=== PATIENT | female | born 1970 | race Caucasian/White ===

== ENCOUNTER 2023-08-10 18:21 | Emergency (ER) | payer MEDICARE ==
--- NOTE | 2023-08-10 19:49 | ED Physician Documentation ---
History of Present Illness - Stated complaint Stated Complaint: JAW PX - Chief complaint Chief Complaint: Heent - History obtained from History obtained from: Patient - Additonal information Additional information: 53yF with pmh seizure disorder, depression, migraines, p/w BL lower jaw pain, pulling sensation on face, headache, sinus fullness and sore throat X 2 days. patient also states her ear popped. denies fever, confusion, fnd. PD PAST MEDICAL HISTORY - Past Medical History Past Medical History: Yes Neuro: Seizure disorder GI: Diverticulitis Psych: Depression - Past Surgical History Past Surgical History: Yes - Present Medications Home Medications: Ambulatory Orders Medication Instructions Recorded Confirmed Ketorolac [Toradol] 10 mg PO Q6H PRN #20 tablet 08/10/23 - Allergies Allergies/Adverse Reactions: Allergies Allergy/AdvReac Type Severity Reaction Status Date / Time lamotrigine [From Lamictal] Allergy Hives Verified 08/10/23 18:29 morphine Allergy Hives Verified 08/10/23 18:29 - Social History Does the pt smoke?: No Smoking Status: Never smoker PD ED PE NORMAL - Vitals Vital signs reviewed: Yes - General General: Alert and oriented X 3, No acute distress, Well developed/nourished - HEENT HEENT: Atraumatic, PERRL, EOMI, Moist mucous membranes, Pharynx benign - Neck Neck: Supple, no meningeal sign, Other (scant BL anterior cervical LAD) - Derm Derm: Normal color, Warm and dry - Psych Psych: Normal mood, Normal affect Results - Vitals Vitals: Vital Signs - 24 hr 08/10/23 18:22 Temperature 36.0 C L Heart Rate 105 H Respiratory 18 Rate Blood Pressure 141/77 H O2 Saturation 98 Oxygen O2 Source Room air PD Medical Decision Making - ED course ED course: 53yF presents to the ED with lower jaw pain, sinus pressure, frontal headache and is found to have anterior cervical LAD and sinus fullness. also with popping of jaw when opening on facial exam. suspect a component of TMJ and possible viral uri vs seasonal allergies vs inflammatory etiology for sinus fullness and ear popping. d/w patient and provided IM toradol with improvement in pain. referral to [facility] provided. return precautions given. Departure - Departure Disposition: 01 Home, Self Care Clinical Impression: Popping of temporomandibular joint on opening of jaw, Sinus headache Condition: Stable Instructions: TMD Self Care Follow-Up: Gavin Keating DDS [Provider Admit Priv/Credential] - Prescriptions: Ketorolac [Toradol] 10 mg PO Q6H PRN #20 tablet PRN Reason: Pain Comments: You were seen in the emergency department for medical evaluation. Toradol prescription sent electronically to [facility]. Please follow-up with [facility] (referral provided) and return to the emergency department if you have any new or worsening symptoms or other concerns.
[2023-08-10] MEDS: KETOROLAC 30 MG/ML VIAL IM STA (19:53)
[2023-08-10 20:21] VITALS: BP 135/87; O2SAT 96
== END 2023-08-10 20:18 | disposition home or self-care (01) ==
LOC: ED 18:21
DX: M26.69 Other specified disorders of temporomandibular joint (principal); R51.9 Headache, unspecified
CPT/HCPCS: 99283

== ENCOUNTER 2023-12-24 10:04 | Emergency (ER) | payer MEDICARE ==
--- NOTE | 2023-12-24 11:22 | ED Physician Documentation ---
History of Present Illness - Stated complaint Stated Complaint: THROAT PX - Chief complaint Chief Complaint: Heent - History obtained from History obtained from: Patient - Additonal information Additional information: She presents with complaint that she was awoken from sleep last night that the midline of her palate popped and then pulled her entire face to the right with a bone sticking out that she can feel in her throat. She had a similar episode few months ago and was treated with muscle relaxers by [facility]. PD PAST MEDICAL HISTORY - Past Medical History Past Medical History: Yes Neuro: Seizure disorder GI: Diverticulitis Psych: Depression - Past Surgical History Past Surgical History: Yes - Present Medications Home Medications: Ambulatory Orders Medication Instructions Recorded Confirmed Ketorolac [Toradol] 10 mg PO Q6H PRN #20 tablet 08/10/23 Cyclobenzaprine [Flexeril] 10 mg PO TID PRN #20 tablet 12/24/23 - Allergies Allergies/Adverse Reactions: Allergies Allergy/AdvReac Type Severity Reaction Status Date / Time lamotrigine [From Lamictal] Allergy Hives Verified 12/24/23 10:23 morphine Allergy Hives Verified 12/24/23 10:23 - Social History Does the pt smoke?: No Smoking Status: Never smoker Does the pt drink ETOH?: No Does the pt have substance abuse?: No Substance Use and Type: Marijuana - Immunizations Immunizations are current?: Yes - POLST Patient has POLST: No PD ED PE NORMAL - Vitals Vital signs reviewed: Yes - General General: Alert and oriented X 3, No acute distress - HEENT HEENT: Ears normal, Pharynx benign, Other (She is a dentulous but otherwise her oropharyngeal exam is unremarkable.) - Neck Neck: Supple, no meningeal sign, No bony TTP, No adenopathy - Neuro Neuro: Alert and oriented X 3 Eye Opening: Spontaneous Motor: Obeys Commands Verbal: Oriented GCS Score: 15 - Psych Psych: Normal mood, Normal affect Results - Vitals Vitals: Vital Signs - 24 hr 12/24/23 10:19 Temperature 36.3 C L Heart Rate 86 Respiratory 20 Rate Blood Pressure 118/48 L O2 Saturation 95 Oxygen O2 Source Room air - Rads (name of study) CT Neck- NAD Relevant Findings:: Final report received, EMP independent interpretation of test PD Medical Decision Making - ED course ED course: She presents with pain that is very odd, the popping sensation that had no trigger in her palate then pulling her face to her right and a bone sticking out of her neck seems questionable to be organic. Subsequently CT imaging of the neck was quite normal without an explanation for the symptomatology. She did take muscle laxer's were previously helpful. No EMC present. Departure - Departure Disposition: Home, Self Care Clinical Impression: Facial pain Condition: Good Record reviewed to determine appropriate education?: Yes Instructions: ED Acute Pain [facility] Follow-Up: SHIVANI DOWNEY [Physician No Access] - Prescriptions: Cyclobenzaprine [Flexeril] 10 mg PO TID PRN #20 tablet PRN Reason: Spasms Comments: The CAT scan of your face and neck did not show any significant abnormalities. Reasonable to follow-up with the facial specialist again for further evaluation and treatment with this knowledge and consideration for referral to neurology although it does not seem like something like trigeminal neuralgia. I sent the prescription electronically to [facility] in [place]. Forms: PCP List
--- NOTE | 2023-12-24 12:57 | CT Report ---
PROCEDURE: Soft Tissue Neck WO INDICATIONS: popping sensation R neck, "bone sticking out" TECHNIQUE: Non-contrast 3.0 mm axial sections acquired from the sella to the aortic arch. Additiona l oblique axial 3.0 mm sections acquired through the pharynx. 3 mm thick coronal reformats were gene rated. For radiation dose reduction, the following was used: automated exposure control, adjustment of mA and/or kV according to patient size. COMPARISON: None. FINDINGS: Image quality: Excellent. Lymph nodes: No enlarged lymph nodes seen throughout the neck. Vessels: Non-opacified vessels appear normal in caliber. Note is made of medialization of the commo n carotid arteries, as on series 2 image 33. Neck spaces: The oropharynx, nasopharynx, and pharynx demonstrate no mucosal lesions. The vocal cor ds, false vocal cords, pyriform sinuses, epiglottis, vallecula, and tongue base all appear normal. E xtramucosal spaces appear unremarkable. Glands: The parotid and submandibular glands appear normal, without stones. The thyroid is not seen . Miscellaneous: Visualized brain and orbits appear normal. Lung apices appear clear. Superficial so ft tissues appear normal. Moderate lower cervical spine degenerative changes are seen. No abnormal b ashwin protuberances can be seen. IMPRESSION: No imaging explanation is found for the patient's presenting symptoms. No masses or abnormal enhancement can be seen. No focal bony abnormalities are seen. Additional findings: Medialization of the common carotid arteries. No thyroid seen Reviewed by: Nixon Lal MD on 12/24/2023 11:55 AM JAZMIN Approved by: Nixon Lal MD on 12/24/2023 11:55 AM UTJEFFY Station ID: [id number]
[2023-12-24 13:24] VITALS: BP 118/50; O2SAT 98
== END 2023-12-24 13:18 | disposition home or self-care (01) ==
LOC: ED 10:04
DX: R51.9 Headache, unspecified (principal)
CPT/HCPCS: 99283; 99284